=== PATIENT | female | born 1965 | race Caucasian/White ===

== ENCOUNTER 2020-10-25 02:01 | Emergency (ER) | payer MEDICARE, SELFPAY ==
--- NOTE | ~2020-10-25 | XR_ITS ---
XR chest 1V portable 10/25/2020 02:35 Indication: Shortness of breath Procedure: AP portable chest Comparison: 09/13/2016 Findings: There is left basilar atelectasis/scarring. No focal pneumonia, edema, pleural effusion or pneumothorax. No acute osseous abnormality. Impression: 1: Left basilar atelectasis/scarring. Reviewed, dictated and finalized at location A. Impression: 1: Left basilar atelectasis/scarring.
[2020-10-25 02:02] VITALS: BP 110/82; PULSE 99; RESP 18; TEMP 36.8; O2SAT 98
--- NOTE | 2020-10-25 02:08 | ECG_ITS ---
Measurements Intervals [place] Rate: 96 P: 49 AL: 167 QRS: 22 QRSD: 88 T: 66 QT: 338 QTc: 428 Interpretive Statements SINUS RHYTHM EARLY PRECORDIAL R/S TRANSITION BASELINE ARTIFACT- II, III, AVF BORDERLINE ECG Electronically Signed On 10-25-2020 5:49:28 CDT by Bogdan Galloway D.O.
[2020-10-25 02:30] LABS: Basophils Percent Auto 0.5 % (0.2-1.2); Eosinophils Absolute Auto 0.2 K/mm3 (0-0.3); Hematocrit 40.9 % (37.0-47.0); Hemoglobin 13.3 g/dL (12.0-15.0); Immature Granulocyte Absolute 0.02 K/mm3 (0.00-0.031); Immature Granulocyte Percent A 0.3 % (0-0.5); Lymphocytes Absolute Auto 2.59 K/mm3 (0.9-3.2); Lymphocytes Percent Auto 34.5 % (18.3-44.2); Mean Corpuscular HGB Conc 32.5 g/dl (32-36); Mean Corpuscular Hemoglobin 27.3 pg (26-34); Mean Platelet Volume 11.7 fl (7.4-10.4); Monocytes Absolute Auto 0.7 K/mm3 (0.1-0.6); Monocytes Percent Auto 9.2 % (2.6-8.5); Neutrophils Percent Auto 53.5 % (45.5-73.1); Platelet Count Result 273 k/mm3 (150-375); Red Blood Count 4.87 M/mm3 (4.2-5.4); Red Cell Distribution Width 12.8 % (11.5-14.5); White Blood Count 7.5 K/mm3 (4.5-10.0)
[2020-10-25 02:43] LABS: Magnesium 1.6 mg/dL (1.6-2.3)
[2020-10-25 02:44] LABS: Alanine Aminotransferase 12 U/L (4-35); Albumin Level 3.7 g/dL (3.5-5.1); Alkaline Phosphatase 95 U/L (38-126); Anion Gap 12 mmol/L (8-16); Aspartate Amino Transferase 22 U/L (14-36); Bilirubin,Total 0.5 mg/dL (0.2-1.3); Blood Urea Nitrogen 14 mg/dL (7-17); Calcium 9.8 mg/dL (8.4-10.2); Carbon Dioxide 22 mmol/L (22-30); Chloride 106 mmol/L (98-107); Estimated CRCL calculation 93 ml/min; Estimated Glomerular Filt Rate > 60; Glucose 106 mg/dL (65-105); Potassium 3.3 mmol/L (3.4-5.0); Sodium 140 mmol/L (137-145)
[2020-10-25 02:45] LABS: INR 1.3; Prothrombin Time 17.1 Seconds (11.1-14.7)
[2020-10-25 02:46] LABS: Partial Thromboplastin Time 38.3 SECONDS (22.3-36.8)
[2020-10-25 02:56] LABS: NT Pro B Type Natriuretic Pept 110 pg/mL (5-100); Troponin I < 0.012 ng/mL (0.000-0.034)
--- NOTE | 2020-10-25 03:09 | ED.GENADULT ---
HPI - General Adult General Chief complaint: Shortness of Breath/Dyspnea Stated complaint: SOB/ back pain Time Seen by Provider: 10/25/20 02:06 History of Present Illness HPI narrative: Patient is a 55-year-old female presents emerged from with chief complaint of shortness of breath. 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 The patient states currently she feels back to her baseline and currently has no complaints denies chest pain denies abdominal pain denies vomiting or diarrhea. Related Data Allergies Allergy/AdvReac Type Severity Reaction Status Date / Time No Known Drug Allergies Allergy Unknown Verified 09/13/16 12:41 Review of Systems Review of Systems: Narrative: A 10 system review of systems was completed on the patient and is negative except for what is stated in the HPI. Nursing and ancillary documentation was reviewed. PMFSH Comments Prior history of Guillain-Logan? [facility] the jail Prior history of smoking but not currently smoking Exam Narrative: Exam Narrative: GENERAL: Well-appearing, well-nourished, and in no acute distress. HEAD: Normocephalic, atraumatic. EYES: PERRLA and EOMI. ENT: Nares clear, no rhinorrhea or epistaxis. Mucous membranes moist. NECK: Supple. There is a scar from a trach CHEST: Clear to auscultation. No respiratory distress. HEART: Regular rate and rhythm. No murmur heard. Normal peripheral pulses. ABDOMEN: Soft, nontender, nondistended, normal active bowel sounds. EXTREMITIES: Patient has limited range of motion due to prior Guillain-Logan?. No edema. SKIN: Warm, dry, no rash. NEURO: No focal deficits. Alert and oriented x3. PSYCH: Normal mood and affect. Course Vital Signs Vital signs: Vital Signs Temperature 36.8 C 10/25/20 02:02 Pulse Rate 99 10/25/20 02:02 Respiratory Rate 18 10/25/20 02:02 Blood Pressure 110/82 10/25/20 02:02 Pulse Oximetry 98 10/25/20 02:02 Temperature 36.8 C 10/25/20 02:02 Pulse Rate 99 10/25/20 02:02 Respiratory Rate 18 10/25/20 02:02 Blood Pressure 110/82 10/25/20 02:02 Pulse Oximetry 98 10/25/20 02:02 Medical Decision Making Vital Signs Vital Signs: Vital Signs Temperature 36.8 C 10/25/20 02:02 Pulse Rate 99 10/25/20 02:02 Respiratory Rate 18 10/25/20 02:02 Blood Pressure 110/82 10/25/20 02:02 Pulse Oximetry 98 10/25/20 02:02 Temperature 36.8 C 10/25/20 02:02 Pulse Rate 99 10/25/20 02:02 Respiratory Rate 18 10/25/20 02:02 Blood Pressure 110/82 10/25/20 02:02 Pulse Oximetry 98 10/25/20 02:02 Lab Data Result diagrams: 10/25/20 02:24 10/25/20 02:24 Labs: Lab Results 10/25/20 10/25/20 10/25/20 Range/Units 02:24 02:24 02:24 WBC 7.5 (4.5-10.0) K/mm3 RBC 4.87 (4.2-5.4) M/mm3 Hgb 13.3 (12.0-15.0) g/dL Hct 40.9 (37.0-47.0) % MCV 84.0 (80-100) fl MCH 27.3 (26-34) pg MCHC 32.5 (32-36) g/dl RDW 12.8 (11.5-14.5) % Plt Count 273 (150-375) k/mm3 MPV 11.7 H (7.4-10.4) fl Immature Gran % (Auto) 0.3 (0-0.5) % Neut % (Auto) 53.5 (45.5-73.1) % Lymph % (Auto) 34.5 (18.3-44.2) % Barnes % (Auto) 9.2 H (2.6-8.5) % Eos % (Auto) 2.0 (0-4.4) % Baso % (Auto) 0.5 (0.2-1.2) % Lymph # (Auto) 2.59 (0.9-3.2) K/mm3 Barnes # (Auto) 0.7 H (0.1-0.6) K/mm3 Eos # (Auto) 0.2 (0-0.3) K/mm3 Baso # (Auto) 0.0 (0.0-0.1) K/mm3 Abs Immat Gran (auto) 0.02 (0.00-0.031) K/mm3 Absolute Neuts (auto) 4.0 (1.3-6.7) K/mm3 Absolute Nucleated RBC 0.0 (0.0-0.012) K/mm3 Nucleated RBC % 0.0 (0.0-0.2) % PT 17.1 H (11.1-14.7) Seconds INR 1.3 APTT 38.3 H (22.3-36.8) SECONDS Sodium 140 (137-145) mmol/L Potassium 3.3 L (3.4-5.0) mmol/L Chloride 106 (98-107)
[2020-10-25 03:27] VITALS: BP 102/58; PULSE 92; RESP 20; O2SAT 100
[2020-10-25 04:46] VITALS: BP 108/68; PULSE 87; RESP 20; O2SAT 99
== END 2020-10-25 04:52 ==
PROVIDERS: Emergency Provider Emergency Medicine; PCP Family Medicine
DX: R06.00 Dyspnea, unspecified (principal)
CPT/HCPCS: 36415; 71045; 80053; 83735; 83880; 84484; 85025; 85610; 85730; 93005; 99284